=== PATIENT | female | born 1995 | race Two or more races ===

== ENCOUNTER 2022-05-09 18:37 | Emergency (ER) | payer MEDICAID ==
--- NOTE | 2022-05-09 19:02 | NUR ---
PATIENT WAS CALLED TO BE TRIAGED BUT WAS NOT PRESENT IN THE WAITING ROOM.
--- NOTE | 2022-05-09 19:11 | NUR ---
PATIENT WAS CALLED TO BE TRIAGED BUT WAS NOT PRESENT IN THE WAITING ROOM OR OUTSIDE OF ER.
--- NOTE | 2022-05-09 19:29 | NUR ---
PATIENT WAS CALLED TO BE TRIAGED BUT WAS NOT PRESENT IN THE WAITING ROOM. PATIENT WAS NOT SEEN BY ERMD OR TRIAGED.
== END 2022-05-09 19:34 | disposition left against medical advice (07) ==
LOC: ER 18:46
DX: Z53.21 Procedure and treatment not carried out due to patient leaving prior to being seen by health care provider (principal)

== ENCOUNTER 2022-05-16 01:09 | Emergency (ER) | payer MEDICAID ==
[~2022-05-16] VITALS: Ht 157.5 cm; Wt 65.8 kg
[2022-05-16] MEDS ORDERED: BUPR8TAB4 SL (01:25)
--- NOTE | 2022-05-16 01:30 | NUR ---
Dr. Cortez at bedside for MSE.
[2022-05-16] MEDS ORDERED: LIDOCAINE 2%-EPI 1:100,000 20 ML VIAL ONE (01:45)
[2022-05-16] MEDS ORDERED: LIDOCAINE 2%-EPI 1:100,000 20 ML VIAL TP ONE (01:45)
--- NOTE | 2022-05-16 03:10 | NUR ---
Patient discharged to home in stable condition. Written and verbal after care instructions given. Patient verbalizes understanding of instructions. Stressed follow up or return to ER for worsening s/s. Patient out of ER via wheelchair, no acute signs of distress, VSS, all belongings taken, assisted pt on transfer from chair to car, no falls noted, to be driven home by boyfriend via private vehicle.
[2022-05-16 03:17] VITALS: BP 123/74
== END 2022-05-16 03:17 | disposition home or self-care (01) ==
LOC: ER 01:11
DX: O9A.213 Injury, poisoning and certain other consequences of external causes complicating pregnancy, third trimester (principal); S01.111A Laceration without foreign body of right eyelid and periocular area, initial encounter; S01.81XA Laceration without foreign body of other part of head, initial encounter; Z3A.35 35 weeks gestation of pregnancy; W01.190A Fall on same level from slipping, tripping and stumbling with subsequent striking against furniture, initial encounter; Y92.89 Other specified places as the place of occurrence of the external cause; Z79.891 Long term (current) use of opiate analgesic
CPT/HCPCS: A4663